=== PATIENT | female | born 1960 | race Hispanic/Latino ===

== ENCOUNTER → 2019-09-04 | Outpatient (CLI) | payer BC | END | disposition home or self-care (01) | LOC: SHCH 10:07 | PROVIDERS: ATTEND Internal Medicine Cardiovascular Disease | DX: Z09 Encounter for follow-up examination after completed treatment for conditions other than malignant neoplasm (principal); I82.4Z3 Acute embolism and thrombosis of unspecified deep veins of distal lower extremity, bilateral | CPT/HCPCS: 93970 ==

== ENCOUNTER → 2020-05-23 | Outpatient (CLI) | payer BC | END | disposition home or self-care (01) | LOC: SHCH 12:47 | PROVIDERS: ATTEND Internal Medicine Cardiovascular Disease | DX: I87.2 Venous insufficiency (chronic) (peripheral) (principal) | CPT/HCPCS: 93970 ==